=== PATIENT | female | born 2000 | race Caucasian/White ===

== ENCOUNTER 2019-07-06 17:56 | Emergency (ER) | payer OTHER ==
[~2019-07-06] VITALS: Ht 170.2 cm; Wt 99.0 kg
[2019-07-06] MEDS ORDERED: prenatal (18:04)
[2019-07-06] MEDS ORDERED: ibuprofen (18:04)
[2019-07-06] MEDS ORDERED: stool softener (18:04)
[2019-07-06 19:20] LABS: BASO % 0.3 % (0.0-1.0); EOS # 0.5 10^3/uL (0.0-0.5); HEMATOCRIT 30.3 % (36.0-47.0); HEMOGLOBIN 9.4 g/dl (12.0-15.5); LYMPH # 1.9 10^3/uL (1.5-5.0); LYMPH % 16.2 % (24.0-44.0); MEAN CORPUSCULAR HEMOGLOBIN 28.1 pg (27.0-33.0); MEAN CORPUSCULAR VOLUME 90.7 fl (80.0-96.0); MONO % 8.2 % (0.0-5.0); NEUTROPHILS # 8.4 10^3/uL (1.5-8.5); NEUTROPHILS % 70.4 % (36.0-66.0); PLATELET COUNT, AUTOMATED 297 10^3/uL (150-450); RED BLOOD COUNT 3.34 10^6/uL (4.00-5.40); WHITE BLOOD COUNT 11.9 10^3/uL (4.0-10.0)
[2019-07-06 19:44] LABS: ALBUMIN 2.7 GM/DL (3.2-5.2); ALT/SGPT 18 U/L (12-78); BILIRUBIN,TOTAL 0.5 MG/DL (0.2-1.0); BLOOD UREA NITROGEN 15 MG/DL (7-18); CALCIUM LEVEL 8.4 MG/DL (8.5-10.1); CARBON DIOXIDE LEVEL 27 MEQ/L (21-32); CHLORIDE LEVEL 110 MEQ/L (98-107); CREATININE FOR GFR 0.63 MG/DL (0.55-1.30); GLOMERULAR FILTRATION RATE > 60.0 (>60); GLUCOSE, FASTING 83 MG/DL (70-100); POTASSIUM SERUM 3.7 MEQ/L (3.5-5.1); SODIUM LEVEL 142 MEQ/L (136-145); TOTAL PROTEIN 6.2 GM/DL (6.4-8.2)
--- NOTE | 2019-07-06 20:36 | REPVR ---
PROCEDURE INFORMATION: Exam: US Pelvis Complete, Transabdominal Exam date and time: 07/06/2019 8:24 PM Age: 19 years old Clinical indication: Other: Fever; Additional info: Fevers 6 days TECHNIQUE: Imaging protocol: Real-time transabdominal pelvic ultrasound with image documentation. Complete exam. COMPARISON: No relevant prior studies available. FINDINGS: Uterus/cervix: Uterus measures 16.1 x 8.1 x 10.9 cm. Endometrial echo complex measures 14.8 mm. There is fluid demonstrated in the endometrial cavity. Finding likely represents hemorrhagic byproducts. No echogenic foci which might suggest retained products of conception. Right adnexa: Right ovary measures 3.6 x 2 x 2.3 cm. Volume 8.7 cc. Normal flow. Left adnexa: Left ovary 2.8 x 2.6 x 3.1 cm. Volume 11.8 cc. Normal flow. Free fluid: None. Bladder: Normal. IMPRESSION: 1. Endometrial echo complex measures 14.8 mm. There is fluid demonstrated in the endometrial cavity. Finding likely represents hemorrhagic byproducts. No echogenic foci which might suggest retained products of conception. 2. Otherwise unremarkable. Electronically signed by: Francisco Crump On 07/06/2019 20:33:56 PM
--- NOTE | 2019-07-06 20:37 | REP ---
PA and lateral chest: There are no comparisons. The lung tavera are clear. The cardiac size is normal. The mercedes, mediastinum, and skeletal structures are unremarkable. Impression: Negative PA and lateral chest. Electronically Signed by Satnam Moore MD 07/06/2019 08:29 P
[2019-07-06] MEDS ORDERED: KEFL500C17 PO (22:08)
[2019-07-06] MEDS ORDERED: CEPHALEXIN 500 MG CAP PO ONE (22:15)
[2019-07-06 22:21] VITALS: BP 130/86
== END 2019-07-06 22:22 | disposition home or self-care (01) ==
LOC: M ED 17:56
DX: N39.0 Urinary tract infection, site not specified (principal); N93.9 Abnormal uterine and vaginal bleeding, unspecified; Z87.440 Personal history of urinary (tract) infections; Z86.19 Personal history of other infectious and parasitic diseases; Z82.49 Family history of ischemic heart disease and other diseases of the circulatory system

== ENCOUNTER 2020-03-29 07:10 | Emergency (ER) | payer OTHER ==
[~2020-03-29] VITALS: Ht 170.2 cm; Wt 84.1 kg
[2020-03-29 07:10] VITALS: BP 110/84
[~2020-03-29 07:10] MED LIST: KEFL500C17 PO; ibuprofen; prenatal; stool softener
[2020-03-29] MEDS ORDERED: FLOM0.4C39 PO ×2 (15:07→15:45)
== END 2020-03-29 07:25 | disposition left against medical advice (07) ==
LOC: M ED 07:10
DX: Z53.21 Procedure and treatment not carried out due to patient leaving prior to being seen by health care provider (principal)

== ENCOUNTER 2020-03-29 11:10 | Emergency (ER) | payer OTHER ==
[~2020-03-29] VITALS: Ht 170.2 cm; Wt 85.9 kg
[2020-03-29] MEDS ORDERED: NS 1,000 ML IV ONE (12:15)
[2020-03-29 12:40] LABS: BASO # 0.1 10^3/uL (0.0-0.2); BASO % 0.5 % (0.0-1.0); EOS # 0.2 10^3/uL (0.0-0.5); EOS % 1.4 % (0.0-3.0); HEMATOCRIT 41.2 % (36.0-47.0); LYMPH % 17.9 % (24.0-44.0); MEAN CORPUSCULAR HEMOGLOBIN 30.1 pg (27.0-33.0); MEAN CORPUSCULAR VOLUME 88.6 fl (80.0-96.0); MONO # 0.9 10^3/uL (0.0-0.8); MONO % 7.9 % (0.0-5.0); NEUTROPHILS # 8.2 10^3/uL (1.5-8.5); PLATELET COUNT, AUTOMATED 218 10^3/uL (150-450); RED BLOOD COUNT 4.65 10^6/uL (4.00-5.40); WHITE BLOOD COUNT 11.3 10^3/uL (4.0-10.0)
[2020-03-29 13:09] LABS: ALBUMIN 4.1 GM/DL (3.2-5.2); BILIRUBIN,DIRECT 0.3 MG/DL (0.0-0.2); BILIRUBIN,TOTAL 1.1 MG/DL (0.2-1.0); TOTAL PROTEIN 7.5 GM/DL (6.4-8.2)
--- NOTE | 2020-03-29 13:39 | REPVR ---
PROCEDURE INFORMATION: Exam: CT Abdomen And Pelvis Without Contrast Exam date and time: 03/29/2020 1:16 PM Age: 20 years old Clinical indication: Abdominal pain; Flank; Right; Additional info: R flank pain, dark urine TECHNIQUE: Imaging protocol: Computed tomography of the abdomen and pelvis without contrast. Radiation optimization: All CT scans at this facility use at least one of these dose optimization techniques: automated exposure control; mA and/or kV adjustment per patient size (includes targeted exams where dose is matched to clinical indication); or iterative reconstruction. COMPARISON: US PELVIC NON-OB COMPLETE 07/06/2019 8:00 PM FINDINGS: Lungs: The visualized portions of the lung bases are normal. Mediastinal space: A small hiatal hernia is present. Liver: There are no focal liver lesions present. Gallbladder and bile ducts: The gallbladder is normal. Pancreas: The pancreas is normal. Spleen: The spleen is normal. Adrenals: The adrenal glands are normal. Kidneys and ureters: There is a nonobstructing 4 mm calculus at the lower pole of the right kidney on axial image 65 and a nonobstructing lower pole left renal calculus measuring 2 mm on image 55. The left kidney and ureter are otherwise normal. There is moderate right hydronephrosis and hydroureter. The distal right ureter is not well seen. There is a calcification posterior to the lateral bladder which may possibly be in the ureter measuring 3 mm on image 124. Stomach and bowel: Unremarkable. No obstruction. No mucosal thickening. Appendix: A normal appendix is identified. Intraperitoneal space: Unremarkable. No free air. No significant fluid collection. Vasculature: Unremarkable. No abdominal aortic aneurysm. Lymph nodes: Unremarkable. No enlarged lymph nodes. Urinary bladder: Unremarkable as visualized. Reproductive: Unremarkable as visualized. Bones/joints: Unremarkable. No acute fracture. Soft tissues: Unremarkable. IMPRESSION: 1. There is a nonobstructing 4 mm calculus at the lower pole of the right kidney on axial image 65 and a nonobstructing lower pole left renal calculus measuring 2 mm on image 55. The left kidney and ureter are otherwise normal. 2. There is moderate right hydronephrosis and hydroureter. The distal right ureter is not well seen. There is a calcification posterior to the lateral bladder which may possibly be in the ureter measuring 3 mm on image 124. Electronically signed by: Gary Mcneill On 03/29/2020 13:39:00 PM
--- NOTE | 2020-03-29 14:44 | REPVR ---
PROCEDURE INFORMATION: Exam: US Abdomen, Limited; Right Upper Quadrant Exam date and time: 03/29/2020 2:26 PM Age: 20 years old Clinical indication: Abdominal pain; Flank; Right; Additional info: Hyperbilirubinemia, R flank pain TECHNIQUE: Imaging protocol: US abdomen. Real time ultrasound with image documentation. Limited exam focused on the right upper quadrant. COMPARISON: CT ABD PELVIS W/O CONTRAST 03/29/2020 1:09 PM FINDINGS: Liver: A hyperechoic 5.5 mm nodule is seen in the right liver segment 7 on image 40 which could represent an hemangioma. There is no lesion identified on CT without contrast. Gallbladder: The gallbladder is normal. The wall thickness is 2 mm. No tenderness is reported. Common bile duct: The common bile duct measures 4.7 mm. Pancreas: Visualized pancreas is unremarkable. Right kidney: A calculus at the lower pole of the right kidney is demonstrated measuring 5 mm similar to the CT. Moderate hydronephrosis is confirmed with pelvic thickness of 2.8 cm. Right kidney measures 13.1 x 5.9 x 6.1 cm. Cortex is preserved. There is a possible mid renal 7 mm calculus without shadowing. IMPRESSION: 1. A hyperechoic 5.5 mm nodule is seen in the right liver segment 7 on image 40 which could represent an hemangioma. There is no lesion identified on CT without contrast. 2. The gallbladder is normal. The wall thickness is 2 mm. No tenderness is reported. 3. A calculus at the lower pole of the right kidney is demonstrated measuring 5 mm similar to the CT. Moderate hydronephrosis is confirmed with pelvic thickness of 2.8 cm. Right kidney measures 13.1 x 5.9 x 6.1 cm. Cortex is preserved. There is a possible mid renal 7 mm calculus without shadowing. Electronically signed by: Gary Mcneill On 03/29/2020 14:43:53 PM
[2020-03-29] MEDS ORDERED: FLOM0.4C39 PO ×2 (15:07→15:45)
[2020-03-29 15:35] VITALS: BP 136/82
--- NOTE | 2020-04-04 10:46 | ED PDOC ---
Post-Departure Follow-Up [facility] faxed formal report of gb us for fu Ronda Viera MD Apr 04, 2020 10:46
== END 2020-03-29 15:53 | disposition home or self-care (01) ==
LOC: M ED 11:10
DX: N13.2 Hydronephrosis with renal and ureteral calculous obstruction (principal); E80.7 Disorder of bilirubin metabolism, unspecified; K76.89 Other specified diseases of liver; J45.909 Unspecified asthma, uncomplicated; F41.9 Anxiety disorder, unspecified; F32.9 Major depressive disorder, single episode, unspecified; F42.9 Obsessive-compulsive disorder, unspecified; Z87.448 Personal history of other diseases of urinary system